=== PATIENT | male | born 1990 | race Caucasian/White ===

== ENCOUNTER → 2019-01-22 | Outpatient (CLI) | payer BC ==
[~2019-01-22] MED LIST: IOHEXOL 240 MG/ML 50ML VIAL. PO ONE; IOHEXOL 300 MG/ML 100ML VIAL. IV ONE
--- NOTE | 2019-01-22 16:30 | KCIC ---
Examination: CT of the abdomen pelvis with oral and IV contrast HISTORY: History of abdominal pain, left-sided COMPARISON: None available TECHNIQUE: Axial CT images of the abdomen pelvis were performed with oral and IV contrast. Coronal and sagittal reformatted performed Exposure: One or more of the following individualized dose reduction techniques were utilized for this examination: 1. Automated exposure control 2. Adjustment of the mA and/or kV according to patient size 3. Use of iterative reconstruction technique FINDINGS: The bibasilar lungs are clear. No evidence of free air identified in the abdomen. There is mild decreased attenuation noted in the liver likely hepatic steatosis. The visualized spleen, adrenals grossly appears unremarkable. The gallbladder is mildly distended. The stomach is mildly distended. The visualized pancreas grossly appears unremarkable. The small bowel is nondilated. Feces and gas noted in the colon. The appendix is normal. The bilateral kidneys enhance symmetrically. The caliber of the aorta grossly appears unremarkable The urinary bladder is mildly distended. No evidence of lytic bony destructive lesion. IMPRESSION: 1. No acute intra-abdominal findings. 2. Mild hepatic steatosis. Electronically signed by: Keshawn Garcia MD (01/22/2019 4:27 PM) [id number]
== END | disposition home or self-care (01) ==
LOC: KCIC CT 12:51
PROVIDERS: ATTEND Family Medicine
DX: K76.0 Fatty (change of) liver, not elsewhere classified (principal); K82.8 Other specified diseases of gallbladder; K31.89 Other diseases of stomach and duodenum
CPT/HCPCS: 74177; Q9966; Q9967

== ENCOUNTER → 2021-10-23 | Outpatient (CLI) | payer OTHER ==
--- NOTE | 2021-10-24 17:29 | RAD ---
EXAM: ULTRASOUND SOFT TISSUE NECK CLINICAL HISTORY: Reason: THROAT SWELLING / Spl. Instructions: / History: COMPARISON: None TECHNIQUE: Ultrasound examination of the left neck was performed in the area of concern FINDINGS: In the left neck, there are 3 lymph nodes noted. The largest measures 2.2 x 0.8 x 2.0 cm. This has mi ld cortical thickening. Another measures 1.2 x 1.0 x 0.5 cm and also has mild cortical thickening. Th ere is a third small lymph node measuring 0.8 x 0.4 x 1.0 cm. IMPRESSION: Mildly enlarged lymph nodes in the left neck measuring up to 2.2 cm, nonspecific. Recomme nd follow-up ultrasound in 3-6 months to ensure stability. Electronically signed by: Alejandra Michelle MD (10/24/2021 5:26 PM) [id number]
== END ==
LOC: US 15:52
PROVIDERS: ATTEND Family Medicine
DX: R59.0 Localized enlarged lymph nodes (principal)
CPT/HCPCS: 76536